=== PATIENT | male | born 1970 | race Caucasian/White ===

== ENCOUNTER 2024-10-07 11:32 | Emergency (ER) | payer BC, OTHER ==
[2024-10-07 11:54] LABS: BASOPHILS ABSOLUTE AUTO 0.02 10^3/uL (0.00-0.10); BASOPHILS PERCENT AUTO 0.1 % (0.0-1.0); EOSINOPHILS ABSOLUTE AUTO 0.01 10^3/uL (0.10-0.30); EOSINOPHILS PERCENT AUTO 0.1 % (1.0-3.0); IMMATURE GRAN ABSOLUTE AUTO 0.01 10^3/uL (0.00-0.04); IMMATURE GRAN PERCENT AUTO 0.1 % (0.0-0.4); LYMPHOCYTES ABSOLUTE AUTO 1.23 10^3/uL (1.00-4.00); LYMPHOCYTES PERCENT AUTO 8.7 % (20.0-40.0); MEAN PLATELET VOLUME 8.8 fL (7.4-10.4); MONOCYTES ABSOLUTE AUTO 0.65 10^3/uL (0.10-0.80); MONOCYTES PERCENT AUTO 4.6 % (2.0-8.0); NEUTROPHILS ABSOLUTE AUTO 12.17 10^3/uL (2.50-7.00); NEUTROPHILS PERCENT AUTO 86.4 % (50.0-70.0); PLATELET COUNT,PLT 246 10^3/uL (150-400); RED BLOOD CELL COUNT 4.73 10^6/uL (4.50-6.00); RED CELL DISTRIBUTION WIDTH 12.2 % (11.5-14.5); WHITE BLOOD CELL COUNT,WBC 14.09 10^3/uL (5.00-10.00)
[2024-10-07 12:12] LABS: ALANINE AMINOTRANSFERASE,ALT 26.0 U/L (14-63); ASPARTATE AMNIOTRANSFERASE,AST 16.0 U/L (15-37); BILIRUBIN TOTAL 0.5 mg/dL (0.2-1.0); BLOOD UREA NITROGEN,BUN 9.0 mg/dL (7-18); CARBON DIOXIDE,CO2 27.1 mmol/L (21.0-32.0); CHLORIDE,CL 104.0 mmol/L (98-107); CREATININE 0.73 mg/dL (0.51-1.17); EST CRCL DRUG DOSING (CG) 125.49 mL/min; GLUCOSE RANDOM 108.0 mg/dL (70-140); POTASSIUM,K 4.2 mmol/L (3.5-5.1); PROTEIN TOTAL,TP 7.3 g/dL (6.4-8.2); SODIUM,NA 141.0 mmol/L (136-145)
[2024-10-07 12:13] LABS: ESTIMATED GFR 107.0 mL/min (>=60)
[2024-10-07] MEDS: Nitroglycerin 0.4 MG Tab.SL SL ONE (13:41)
== END 2024-10-07 18:35 | disposition home or self-care (01) ==
LOC: KA.ED 11:32
DX: R07.9 Chest pain, unspecified (principal)
CPT/HCPCS: 36415; 71045; 80053; 84484; 85025; 85379; 99285; A9270-GY